=== PATIENT | male | born 1955 | race Caucasian/White ===

== ENCOUNTER → 2024-06-16 07:42 | Outpatient (REF) | payer MEDICARE, BC, SELFPAY | LOC: RAD 07:42 | PROVIDERS: ATTENDING PHYSICIAN Family Medicine | DX: Z00.00 Encounter for general adult medical examination without abnormal findings (principal); I35.0 Nonrheumatic aortic (valve) stenosis | CPT/HCPCS: 76770; 93306 ==

== ENCOUNTER → 2024-08-05 13:23 | Outpatient (REF) | payer MEDICARE, BC, SELFPAY | LOC: HWRAD 13:23 | PROVIDERS: ATTENDING PHYSICIAN Family Medicine | DX: F17.210 Nicotine dependence, cigarettes, uncomplicated (principal) | CPT/HCPCS: 71271 ==

== ENCOUNTER → 2024-09-26 07:01 | Outpatient (REF) | payer MEDICARE, BC, SELFPAY | LOC: HWRCS 07:01 | PROVIDERS: ATTENDING PHYSICIAN Internal Medicine Cardiovascular Disease; FAMILY PHYSICIAN Family Medicine | DX: R06.09 Other forms of dyspnea (principal) | CPT/HCPCS: 78452; 93017; A9500 ==

== ENCOUNTER → 2024-09-28 06:53 | Outpatient (REF) | payer MEDICARE, BC, SELFPAY | LOC: RAD 06:53 | PROVIDERS: ATTENDING PHYSICIAN Internal Medicine Cardiovascular Disease; FAMILY PHYSICIAN Family Medicine | DX: R09.89 Other specified symptoms and signs involving the circulatory and respiratory systems (principal) | CPT/HCPCS: 93880 ==

== ENCOUNTER → 2025-06-26 07:54 | Outpatient (REF) | payer MEDICARE, BC, SELFPAY | LOC: HWRCS 07:54 | PROVIDERS: ATTENDING PHYSICIAN Internal Medicine Cardiovascular Disease; FAMILY PHYSICIAN Family Medicine | DX: I35.0 Nonrheumatic aortic (valve) stenosis (principal) | CPT/HCPCS: 93306 ==

== ENCOUNTER 2025-07-03 09:49 | Emergency (ER) | payer MEDICARE, BC, SELFPAY ==
[2025-07-03 10:14] VITALS: BP 161/104
--- NOTE | 2025-07-03 10:56 | ED.GENMED ---
History of Present Illness
General
Chief Complaint: Back Pain
Source: patient
Exam Limitations: none
Time Seen by Provider: 07/03/25 10:41
History of Present Illness
History of Present Illness:
69yoM with a history of hypertension, hyperlipidemia, and diabetes presenting for evaluation of back pain. Pain initially started in the left hip about 2 weeks ago and has since migrated to the right lower back. He denies any trauma but was raking
leaves in the backyard before his symptoms began. Pain is worse with movement, specifically with bending over. He has been taking extra strength Tylenol which seems to help. He is also constipated and has not had a bowel movement in the 4 days.
He denies any urinary incontinence or difficulty initiating urine stream. No fevers, abdominal pain, or vomiting. No weakness in the lower extremities or paresthesias. Patient believes he may have a kidney stone.
Phy Exam
General Physical Exam
General Presentation: well appearing and no apparent distress
General age: appears stated age
General Skin: warm and dry
General Habitus: normal
ENT Exam
ENT Exam: normocephalic
Cardiovascular Exam
Cardiovascular Exam: normal peripheral pulses (2+ PT pulses bilaterally)
Pulmonary Exam
Pulmonary Exam: no respiratory distress
Gastrointestinal Exam
Gastrointestinal Exam: non tender, soft, non distended and no cva tenderness
Neurological Exam
Neurological Exam: alert and no motor deficits (5/5 strength in bilateral lower extremities)
Musculoskeletal Exam
Musculoskeletal Exam: other (+Tenderness to R lower lumbar region near SI joint. No midline spinous process tenderness. No skin changes.)
Skin Exam
Skin Exam: normal color and warm/dry
Psychiatric Exam
Psychiatric Exam: normal mood/affect
Course
Orders/Labs/Results
Orders:
Orders
07/03/25 10:56
CT Abd/pel Without Iv Or Oral Urgent
Comment:
Reason For Exam: R lower back pain, eval for stone
Vital Signs
Initial and Last Documented VS:
Initial Vital Signs
Temp Pulse Resp BP Pulse Ox
98.0 F 80 16 161/104 98
07/03/25 10:14 07/03/25 10:14 07/03/25 10:14 07/03/25 10:14 07/03/25 10:14
Last Documented Vital Signs
Temp Pulse Resp BP Pulse Ox
98.0 F 83 16 183/83 97
07/03/25 10:14 07/03/25 13:36 07/03/25 13:36 07/03/25 13:36 07/03/25 13:36
MDM/Problems Addressed
Differential Diagnosis Includes:
69yoM here with low back pain x 2 weeks. Started in L hip but now in R lower back. Worse with movement. Believes he has a kidney stone. No red flags in history including no fevers, saddle anesthesia, incontinence. There is reproducible tenderness on
exam. Lower extremities are neurovascularly intact with palpable pulses and 5/5 strength. Differential diagnosis includes: muscular strain, sacroiliitis, less likely fracture, less likely kidney stone
CT AP without contrast obtained which is negative for acute findings. L intrarenal stone noted without hydronephrosis which should not cause pain and also his current pain is R sided. Suspect muscular strain/spasm. He has been using Tylenol at home.
Will provide prescription for naproxen. Advised f/u with PCP and ED return precautions reviewed. He was discharged in stable condition.
*Pulse Oximetry
SaO2: 98
Oxygen Mode of Delivery: Room air
Patient hypoxic: no
*Critical Care Note
Total Time (30-74mins, 75-104mins- exclusive of procedures): Not Applicable
ED Attending Note
-
Portions of this chart may have been created with voice recognition software.� Occasional wrong word or��sound alike� substitutions may have occurred due to the inherent limitations of voice recognition software.
Discharge Plan
Departure
Patient Disposition: Home (Routine Discharge)
Date of Disposition: 07/03/25
Time of Disposition: 13:12
Patient with high blood pressure during this ER visit?: Yes
Discharge Problem:
Acute right-sided low back pain
Instructions: Low Back Pain (DC)
Prescriptions:
New
naproxen 500 mg tablet
500 mg PO BID PRN (Reason: Pain) Qty: 20 0RF
Referrals:
Candace Connors MD [Family Provider, Family Practice]
Activity Restrictions/Additional Instructions:
Take naproxen as prescribed. You should take this with food to avoid stomach upset. Take 2 extra strength Tylenol every 8 hours as needed. Never take more than recommended on the bottle. You may also try lidocaine patches daily (12 hours on, 12
hours off).
Please follow-up with your family doctor. Return to the ER with any new or worsening symptoms.
Interventions
Interventions:
*Risk Screen - Suicide Last Done: 07/03/25 10:14
*General Assessment Last Done: 07/03/25 11:04
*Neglect/Abuse Screening Last Done: 07/03/25 10:14
*ED- Fall Risk Assessment Last Done: 07/03/25 11:04
*ED COVID-19 Vaccine History Last Done: 07/03/25 11:04
*ED Influenza Vaccine History Last Done: 07/03/25 11:04
*Nursing Disposition Last Done: 07/03/25 13:36
ED-Musculoskeletal Assessment Last Done: 07/03/25 11:04
Discharge Date and Time
Discharge Date/Time: 07/03/25 13:38
Print Language: ARMENIAN
[2025-07-03 11:06] VITALS: BMI 27.1
[2025-07-03 11:56] VITALS: BP 190/109
[2025-07-03 11:58] VITALS: BP 187/100
[2025-07-03 13:36] VITALS: BP 183/83
== END 2025-07-03 13:38 | disposition home or self-care (01) ==
LOC: EMR 09:49
PROVIDERS: EMERGENCY PHYSICIAN Emergency Medicine; FAMILY PHYSICIAN Family Medicine
DX: N20.0 Calculus of kidney (principal); M54.50 Low back pain, unspecified; I10 Essential (primary) hypertension; E78.5 Hyperlipidemia, unspecified; E11.9 Type 2 diabetes mellitus without complications
CPT/HCPCS: 99284; 74176

== ENCOUNTER → 2025-08-07 10:06 | Outpatient (REF) | payer MEDICARE, BC, SELFPAY | LOC: HWRAD 10:06 | PROVIDERS: ATTENDING PHYSICIAN Family Medicine | DX: Z87.891 Personal history of nicotine dependence (principal) | CPT/HCPCS: 71271 ==